=== PATIENT | male | born 1990 | race African-American/Black ===

== ENCOUNTER 2022-02-19 14:47 | Emergency (ER) | payer OTHER ==
[~2022-02-19] VITALS: Ht 172.7 cm; Wt 86.2 kg
--- NOTE | 2022-02-19 15:17 | NUR ---
PT IS IN ROOM #3. DR HOLLAND EVALUATED THE PT.
[2022-02-19] MEDS ORDERED: IBUP-1955 PO (17:01)
--- NOTE | 2022-02-19 17:14 | NUR ---
PT WAS D/C'd TO HOME. D/C INSTRUCTIONS GIVEN TO THE PT BY DR HOLLAND.
[2022-02-19 17:15] VITALS: BP 139/87
== END 2022-02-19 17:16 | disposition home or self-care (01) ==
LOC: ER 14:57
DX: S93.501A Unspecified sprain of right great toe, initial encounter (principal); W20.8XXA Other cause of strike by thrown, projected or falling object, initial encounter; Y92.89 Other specified places as the place of occurrence of the external cause
CPT/HCPCS: 73630; A4663